=== PATIENT | female | born 1955 | race Two or more races ===

== ENCOUNTER 2024-08-27 15:33 | Emergency (ER) | payer OTHER, MEDICAID ==
[~2024-08-27] VITALS: Ht 162.6 cm; Wt 91.0 kg
--- NOTE | 2024-08-27 16:00 | ED.PDOC ---
Mult. trauma (HPI) HPI Comments fell sunday c/o mid back pain and radiates down the LUE pain describesas tingilng parsthysia cannot hold stuff with left hand felt sensation from spine to neck cannot sleep cannot find comfortable position requesting imaging sees pain managment takes fentanyl patch, oxy TID, and robaxin TID Denies hitting head denies blood thinners jx of Chief Complaint: Fall Injury Time Seen by MD: 15:53 Primary Care Provider: DR KELLY Allergies: Coded Allergies: Aspirin (Verified Allergy, Unknown, 08/27/24) NSAIDs (Verified Allergy, Unknown, 08/27/24) Mode of Arrival: Ambulatory X-Ray, Labs, Meds, VS Vital Signs Date Time Temp Pulse Resp B/P (MAP) Pulse Ox O2 Delivery O2 Flow Rate FiO2 08/27/24 15:40 98.3 102 24 145/73 (97) 97 Lab Test 08/27/24 16:15 Range/Units White Blood Count 12.0 H 4.4-10.8 10^3/uL Red Blood Count 4.18 4.0-5.20 10^6/uL Hemoglobin 13.1 12.2-16.2 g/dL Hematocrit 38.8 36.0-46.0 % Mean Corpuscular Volume 92.9 80.0-100.0 fL Mean Corpuscular Hemoglobin 31.4 28.0-32.0 pg Mean Corpuscular Hemoglobin Concent 33.8 32.0-36.0 g/dL Red Cell Distribution Width 13.4 11.8-14.3 % Platelet Count 327 140-450 10^3/uL Mean Platelet Volume 8.4 6.9-10.8 fL Neutrophils (%) (Auto) 62.4 37.0-80.0 % Lymphocytes (%) (Auto) 29.4 10.0-50.0 % Monocytes (%) (Auto) 5.4 0.0-12.0 % Eosinophils (%) (Auto) 2.3 0.0-7.0 % Basophils (%) (Auto) 0.5 0.0-2.0 % Neutrophils # (Auto) 7.5 1.6-8.6 10 ^3/uL Lymphocytes # (Auto) 3.5 0.4-5.4 10 ^3/uL Monocytes # (Auto) 0.7 0-1.3 10 ^3/uL Eosinophils # (Auto) 0.3 0-0.8 10 ^3/uL Basophils # (Auto) 0.1 0-0.2 10 ^3/uL Nucleated Red Blood Cells 0.0 % Sodium Level Pending Potassium Level Pending Chloride Level Pending Carbon Dioxide Level Pending Anion Gap Pending Blood Urea Nitrogen Pending Creatinine Pending Glomerular Filtration Rate Calc Pending BUN/Creatinine Ratio Pending Serum Glucose Pending Calcium Level Pending Departure 1 Departure Time of Disposition: 17:11 Impression: Primary Impression: Fall Qualified Codes: W19.XXXA - Unspecified fall, initial encounter Disposition: HOME / SELF CARE / HOMELESS Condition: Stable Discharged With: SMITHA Nielsen NP Aug 27, 2024 16:00
--- NOTE | 2024-08-27 16:42 | DVH ---
XY LUMBAR SPINE 4+ VIEW, HISTORY: Fall COMPARISON: None TECHNICAL DATA: Frontal and lateral views were obtained of the lumbar spine as well as bilateral obli que views . FINDINGS: There are 5 lumbar type vertebral bodies. Leftward curvature of the lumbar spine. Mild anterolisthesi s of L3-4, L4-5. Vertebral body heights are maintained. Disk heights are narrowed and degenerative. T he facet joints appear normal. The sacroiliac joints are symmetric. Paraspinal soft tissues are withi n normal limits. IMPRESSION: Mild anterolisthesis of L3-4, L4-5. No acute fracture or dislocation of the lumbar spine.
--- NOTE | 2024-08-27 16:42 | DVH ---
EXAM: XY SPINE THORACIC 2VIEW INDICATION: Fall COMPARISON: None TECHNIQUE: 2 views of the thoracic spine were obtained. Findings: There is no evidence of an acute fracture, spondylolysis, or spondylolisthesis. Mild dextroscoliosis of the thoracic spine. The vertebral body heights and disc spaces are well-maintained. No blastic or lytic lesions are appreciated. No radiopaque foreign bodies. No superficial soft tissue abnormalities. Impression: 1. No definite acute osseous abnormality.
--- NOTE | 2024-08-27 16:45 | DVH ---
EXAM: XY CERVICAL SPINE 3V INDICATION: Fall COMPARISON: None TECHNIQUE: 3 views of the cervical spine were obtained. Findings: There is no evidence of an acute fracture, spondylolysis, or spondylolisthesis. [place], flowing ossification along the anterior aspects of C3-C7. The vertebral body heights and disc spaces are well-maintained. No blastic or lytic lesions are appreciated. No radiopaque foreign bodies. No superficial soft tissue abnormalities. Impression: 1. No acute osseous abnormality. 2. Diffuse idiopathic skeletal hyperostosis (DISH) of the C3-C7 vertebrae.
[2024-08-27 16:55] LABS: Basophils # (auto) 0.1 10 ^3/uL (0-0.2); Basophils % (auto) 0.5 % (0.0-2.0); Eosinophils # (auto) 0.3 10 ^3/uL (0-0.8); Eosinophils % (auto) 2.3 % (0.0-7.0); Hematocrit 38.8 % (36.0-46.0); Hemoglobin 13.1 g/dL (12.2-16.2); Lymphocytes # (auto) 3.5 10 ^3/uL (0.4-5.4); Lymphocytes % (auto) 29.4 % (10.0-50.0); Mean Corpuscular Hemoglobin 31.4 pg (28.0-32.0); Mean Corpuscular Hgb Conc. 33.8 g/dL (32.0-36.0); Mean Corpuscular Volume 92.9 fL (80.0-100.0); Monocytes # (auto) 0.7 10 ^3/uL (0-1.3); Monocytes % (auto) 5.4 % (0.0-12.0); Neutrophils # (auto) 7.5 10 ^3/uL (1.6-8.6); Neutrophils % (auto) 62.4 % (37.0-80.0); Platelet Count (auto) 327 10^3/uL (140-450); Red Blood Cells 4.18 10^6/uL (4.0-5.20); Red Cell Distribution Width 13.4 % (11.8-14.3)
[2024-08-27 17:10] LABS: Chloride 98 mmol/L (98-107); Potassium 3.1 mmol/L (3.5-5.1); Sodium 137 mmol/L (136-145)
[2024-08-27 17:11] LABS: Anion Gap 6 (5-15); Calcium 9.9 mg/dL (8.7-10.4); Carbon Dioxide 33 mmol/L (20-31)
[2024-08-27 17:16] LABS: BUN/Creatinine Ratio 13.5 (10.0-20.0); Blood Urea Nitrogen 13 mg/dL (9-23); Glucose 144 mg/dL (74-106)
[2024-08-27 17:18] VITALS: BP 145/73; PULSE 102; RESP 24; TEMP 98.3; O2SAT 97
== END 2024-08-27 17:20 | disposition home or self-care (01) ==
LOC: ER 15:33
DX: M43.16 Spondylolisthesis, lumbar region (principal); M54.6 Pain in thoracic spine; Z88.6 Allergy status to analgesic agent; W18.39XA Other fall on same level, initial encounter; Y93.89 Activity, other specified; Y92.89 Other specified places as the place of occurrence of the external cause; Y99.8 Other external cause status
CPT/HCPCS: 36415; 72040; 72070; 72110; 80048; 85025